=== PATIENT | female | born 1935 | race Caucasian/White ===

== ENCOUNTER 2017-06-07 08:10 | Emergency (ER) | payer MEDICARE, OTHER ==
[2017-06-07] MEDS ORDERED: Ketorolac 30 MG/ML SDV IM ONE (08:51)
[2017-06-07] MEDS ORDERED: Morphine 2 MG/ML Syringe IVPUSH ONE (08:54)
--- NOTE | 2017-06-07 08:54 | EDM.PDOC ---
ED HPI GENERAL MEDICAL PROBLEM - General Chief Complaint: Back Pain or Injury Stated Complaint: MEDICAL [facility] Time Seen by Provider: 06/07/17 08:45 Source of Information: Reports: Patient, RN Notes Reviewed History Limitations: Reports: No Limitations - History of Present Illness INITIAL COMMENTS - FREE TEXT/NARRATIVE: 79-year-old female presents emergency department day complaint of low back pain left greater than right she injured herself a couple weeks ago has been dealing with this unfortunately this morning pain was so intense she had difficulty getting out of bed EMS services were called she denies any loss of bowel or bladder no fevers, has been using Tylenol and Flexeril at home with minimal relief rates pain 4 out of 10 Lower Back Pain Score (Numeric/FACES): 7 - Related Data Allergies Allergy/AdvReac Type Severity Reaction Status Date / Time amoxicillin [Amoxicillin] AdvReac Nausea and Verified 06/07/17 08:27 Vomiting lisinopril AdvReac Cough Verified 06/07/17 08:27 Home Meds: Home Meds Aspirin [Mahi Chewable Aspirin] 81 mg PO DAILY 04/18/14 [History] Calcium Carbonate/Vitamin D3 [Calcium 600 + Vit D 400] 1 tab PO DAILY 04/18/14 [ History] Cholecalciferol (Vitamin D3) [Vitamin D3] 1,000 unit PO DAILY 04/18/14 [History] Losartan Potassium 1 tab PO DAILY 04/18/14 [History] Multivitamin [Daily Vitamin] 1 each PO DAILY 04/18/14 [History] atorvaSTATin [Lipitor] 40 mg PO BEDTIME 04/18/14 [History] Acetaminophen [Tylenol Extra Strength] 1,000 mg PO TID #100 tablet 06/10/15 [Rx] Metoprolol Succinate [Toprol XL] 50 mg PO DAILY 06/07/17 [History] Past Medical History HEENT History: Reports: Impaired Vision Cardiovascular History: Reports: High Cholesterol, Hypertension Gastrointestinal History: Reports: [employer] History: Reports: Psychiatric History: Reports: Depression Hematologic History: Reports: Blood Transfusion(s) - Infectious Disease History Infectious Disease History: Reports: Chicken Pox, Measles, Mumps - Past Surgical History GI Surgical History: Reports: Cholecystectomy, Colonoscopy Other Female Surgeries/Procedures: partial hysterectomy Musculoskeletal Surgical History: Reports: Hip Replacement Other Musculoskeletal Surgeries/Procedures:: right hip surgery Social & Family History - Tobacco Use Smoking Status *Q: Never Smoker Second Hand Smoke Exposure: No - Caffeine Use Caffeine Use: Reports: Coffee, Soda, Tea - Alcohol Use Days Per Week of Alcohol Use: 0 - Recreational Drug Use Recreational Drug Use: No ED ROS GENERAL - Review of Systems Review Of Systems: See Below Constitutional: Reports: No Symptoms Respiratory: Reports: No Symptoms Cardiovascular: Reports: No Symptoms GI/Abdominal: Reports: No Symptoms Musculoskeletal: Reports: Back Pain ED EXAM,LOWER BACK PAIN/INJURY - Physical Exam Exam: See Below Exam Limited By: No Limitations General Appearance: Alert, WD/WN, No Apparent Distress Respiratory/Chest: No Respiratory Distress Back Exam: Normal Inspection, Decreased Range of Motion, Muscle Spasm, Paraspinal Tenderness. No: CVA Tenderness (R), CVA Tenderness (L), Vertebral Tenderness Extremities: Normal Inspection, Normal Range of Motion, Non-Tender, No Pedal Edema DTR - Lower Extremities: 2+: Knee (R), Knee (L) Course - Vital Signs Last Recorded V/S: Last Vital Signs Temp 95.7 F 06/07/17 08:41 Pulse 81 06/07/17 08:41 Resp 16 06/07/17 08:41 BP 179/94 H 06/07/17 08:41 Pulse Ox 98 06/07/17 08:41 - Orders/Labs/Meds Meds: Medications Discontinued Medications Generic Name Dose Route Start Last Admin Trade Name Jones PRN Reason Stop Dose Admin Carisoprodol 350 mg 06/07/17 08:51 06/07/17 09:01 Soma PO 06/07/17 08:52 350 mg ONETIME ONE Administration Ketorolac Tromethamine 30 mg 06/07/17 08:51 06/07/17 09:02 Toradol IM 06/07/17 08:52 30 mg ONETIME ONE Administration Morphine Sulfate 2 mg 06/07/17 08:54 06/07/17 10:11 Morphine IVPUSH 06/07/17 08:55 Not Given ONETIME ONE Departure - Departure Time of Disposition: 10:15 Disposition: Home, Self-Care 01 Condition: Good Clinical Impression: Back pain Qualifiers: Back pain location: low back pain Chronicity: acute Back pain laterality: left Sciatica presence: without sciatica Qualified Code(s): M54.5 - Low back pain - Discharge Information Referrals: Bing Waddell NP [Primary Care Provider] - Forms: ED Department Discharge Additional Instructions: Try ibuprofen as needed for baseline pain control, try Ultram for breakthrough pain, Please followup with your primary care provider in 2-3 days if not better , please call return to the emergency department with worsening of symptoms. - Assessment/Plan Plan: Assessment Acuity = acute Site and laterality = low back pain with left knee pain Etiology = secondary to twisting injury Manifestations = none Location of injury = Home Lab values = none Plan She had some improvement with Toradol and soma, plan is to try Ultram at home she is to follow-up with primary care in 2-3 days for reevaluation Patient was in agreement with the plan all questions were answered, they were instructed to return to the emergency department or call for worsening symptoms. This note was dictated using [employer] voice recognition software please call with any questions.
[2017-06-07 10:42] VITALS: BP 165/90
== END 2017-06-07 10:42 | disposition home or self-care (01) ==
LOC: JP.ED 08:10
DX: M54.5 Low back pain (principal); M25.562 Pain in left knee; I10 Essential (primary) hypertension; E78.00 Pure hypercholesterolemia, unspecified; Z79.82 Long term (current) use of aspirin; Z79.899 Other long term (current) drug therapy; Z88.1 Allergy status to other antibiotic agents; Z88.8 Allergy status to other drugs, medicaments and biological substances; X50.1XXA Overexertion from prolonged static or awkward postures, initial encounter; Y92.009 Unspecified place in unspecified non-institutional (private) residence as the place of occurrence of the external cause
CPT/HCPCS: 96372; 99284; A9270; J1885; 99283